=== PATIENT | female | born 1935 | race Caucasian/White ===

== ENCOUNTER 2020-04-13 12:41 | Inpatient (IN) ==
[~2020-04-13 12:41] MED LIST: Buffered Lidocaine 1% SYRIN 1 ml INTRADERM ONE; Dexamethasone IV 4 MG/ML VIAL 1 ml VIAL IV SLOW PU ONE; Lactated Ringers 1000 ml BAG 1,000 ML IV SCH
[2020-04-13] MEDS ORDERED: Dexamethasone IV 4 MG/ML VIAL 1 ml VIAL ONE (12:58)
[2020-04-13] MEDS ORDERED: ceFAZolin 2 GM PREMIX 2 GM/50 ML BAG ONE (12:59)
[2020-04-13] MEDS ORDERED: fentaNYL 100 mcg/2 ml 50 MCG/ML VIAL ONE ×2 (14:20→17:38)
[2020-04-13] MEDS ORDERED: Midazolam 2 mg/2 ml VIAL 1 mg/ml 2 ml VIAL (2 mg) ONE (14:20)
[2020-04-13] MEDS ORDERED: oxyCODONE/Acetamin 5/325 mg TAB PO PRN (16:05)
[2020-04-13] MEDS ORDERED: Ondansetron ODT 4 mg TAB 4 MG TAB PO PRN (16:05)
[2020-04-13] MEDS ORDERED: diPHENhydraMINE 25 mg TAB PO PRN (16:05)
[2020-04-13] MEDS ORDERED: Lactulose 30 ml UDC PO PRN (16:05)
[2020-04-13] MEDS ORDERED: Morphine 2 MG/ML SYRINGE IV PRN (16:05)
[2020-04-13] MEDS ORDERED: Magnesium Hydroxide LIQ 30 ML UDC PO PRN (16:05)
[2020-04-13] MEDS ORDERED: diPHENhydraMINE IV 50 MG/ML 1 ml VIAL (BENADRYL) IV PRN (16:05)
[2020-04-13] MEDS ORDERED: Phenylephrine 40 mcg/mL 10mL (400mcg) SYRINGE ONE (16:14)
[2020-04-13] MEDS ORDERED: ceFAZolin 1 GM ADVAN 1 GM in NS 0.9% 50 ML 50 ML IVPB SCH (17:00)
[2020-04-13] MEDS ORDERED: Propofol 10 MG/ML 20 ML BTL ONE ×2 (17:23)
[2020-04-13] MEDS ORDERED: Naloxone 0.4 mg VIAL 0.4 mg/ml 1 ml VIAL IV PRN (17:30)
[2020-04-13] MEDS ORDERED: HYDROmorphone 1 MG/1 ML SYRINGE IV PRN (17:30)
[2020-04-13] MEDS: fentaNYL 100 mcg/2 ml 50 MCG/ML VIAL IV PRN ×4 (17:40→18:15)
[2020-04-13] MEDS: Lactated Ringers 1000 ml BAG 1,000 ML IV SCH (19:22)
[2020-04-13] MEDS: Magnesium Hydroxide LIQ 30 ML UDC PO SCH ×2 (20:21→20:23)
[2020-04-13] MEDS: SULFADIAZINE 500 MG PO SCH (23:39)
[2020-04-13] MEDS: CMCS:Pravastatin 20 mg TAB (NF) PO SCH (23:39)
[2020-04-13] MEDS: ceFAZolin 1 GM ADVAN 1 GM in NS 0.9% 50 ML 50 ML IVPB SCH (23:41)
[2020-04-14] MEDS: Lactated Ringers 1000 ml BAG 1,000 ML IV SCH ×2 (04:38→21:48)
[2020-04-14] MEDS: ceFAZolin 1 GM ADVAN 1 GM in NS 0.9% 50 ML 50 ML IVPB SCH ×2 (06:07→14:47)
[2020-04-14] MEDS: Mirabegron 50 mg ER TAB (NF) PO SCH (07:25)
[2020-04-14] MEDS: SULFADIAZINE 500 MG PO SCH ×2 (07:25→21:17)
[2020-04-14 07:34] LABS: Hematocrit 23 % (35-47); Hemoglobin 7.7 g/dL (12.0-16.0); Mean Platelet Volume 8.4 fL (7.4-10.4); Platelet Count 147 10^3/uL (150-450)
[2020-04-14] MEDS: Aspirin EC 81 mg TAB.EC (enteric coated) PO SCH (07:37)
[2020-04-14] MEDS: Vitamin THERAPEUTIC TAB PO SCH (07:38)
[2020-04-14] MEDS: Magnesium Hydroxide LIQ 30 ML UDC PO SCH ×2 (07:42→21:18)
[2020-04-14 07:45] LABS: BUN/Creatinine Ratio 12.9 (8-20); Calcium 8.3 mg/dL (8.6-10.3); EGFR African American 53.9 (>60); EGFR Non-African American 44.5 (>60)
[2020-04-14] MEDS ORDERED: Spironolactone/HCTZ 25-25 mg PO SCH (08:00)
[2020-04-14] MEDS: Ondansetron 4 mg VIAL 2 MG/ML 2 ml VIAL IV PRN (08:39)
[2020-04-14 12:57] LABS: Hematocrit 23 % (35-47); Hemoglobin 8.1 g/dL (12.0-16.0)
[2020-04-14] MEDS ORDERED: NS 0.9% 500 ml BAG 500 ML IV ONE (18:40)
[2020-04-14] MEDS: CMCS:Pravastatin 20 mg TAB (NF) PO SCH (21:17)
[2020-04-14 21:48] LABS: ABS Lymphocytes 0.3 10^3/ul (1.0-4.8); ABS Monocytes 0.8 10^3/ul (0-0.8); ABS Neutrophils 5.6 10^3/ul (1.5-7.7); Eosinophil % 0.1 %; Hematocrit 21 % (35-47); Hemoglobin 7.4 g/dL (12.0-16.0); Lymphocyte % 4.1 %; Mean Corpuscular HGB Conc 35 g/dL (31-36); Mean Corpuscular Hemoglobin 37 pg (27-31); Mean Corpuscular Volume 106 fL (80-97); Mean Platelet Volume 7.8 fL (7.4-10.4); Platelet Count 142 10^3/uL (150-450); Red Blood Count 2.03 10^6 /uL (3.70-4.87); Red Cell Distribution Width 13 % (10-15); White Blood Count 6.7 10^3/uL (3.5-10.8)
[2020-04-14 22:00] LABS: BUN/Creatinine Ratio 16.5 (8-20); Calcium 8.8 mg/dL (8.6-10.3); EGFR African American 61.8 (>60); EGFR Non-African American 51.1 (>60); Potassium 3.7 mmol/L (3.5-5.0)
[2020-04-15 05:17] LABS: Hematocrit 21 % (35-47); Mean Platelet Volume 8.4 fL (7.4-10.4); Platelet Count 116 10^3/uL (150-450)
[2020-04-15] MEDS: Ondansetron 4 mg VIAL 2 MG/ML 2 ml VIAL IV PRN (06:22)
[2020-04-15] MEDS: Lactated Ringers 1000 ml BAG 1,000 ML IV SCH (07:55)
[2020-04-15] MEDS: Mirabegron 50 mg ER TAB (NF) PO SCH (07:57)
[2020-04-15] MEDS: Magnesium Hydroxide LIQ 30 ML UDC PO SCH ×2 (08:01→20:30)
[2020-04-15] MEDS: SULFADIAZINE 500 MG PO SCH ×2 (08:01→20:39)
[2020-04-15] MEDS: Vitamin THERAPEUTIC TAB PO SCH (08:02)
[2020-04-15] MEDS: Aspirin EC 81 mg TAB.EC (enteric coated) PO SCH (08:02)
[2020-04-15 08:36] LABS: Urine Appearance Cloudy; Urine Bilirubin Negative (Negative); Urine Blood Negative (Negative); Urine Color Amber; Urine Glucose Negative (Negative); Urine Ketones Negative (Negative); Urine Nitrite Negative (Negative); Urine Protein Negative (Negative); Urine Specific Gravity 1.018 (1.010-1.030); Urine Urobilinogen Negative (Negative)
[2020-04-15] MEDS ORDERED: Furosemide 20 mg/2 ml IV VIAL IV SLOW PU ONE (09:17)
[2020-04-15 16:46] LABS: Hematocrit 26 % (35-47); Hemoglobin 9.1 g/dL (12.0-16.0)
[2020-04-15] MEDS: CMCS:Pravastatin 20 mg TAB (NF) PO SCH (20:39)
[2020-04-16 05:20] LABS: Hematocrit 22 % (35-47); Hemoglobin 7.6 g/dL (12.0-16.0); Mean Platelet Volume 8.2 fL (7.4-10.4); Platelet Count 117 10^3/uL (150-450)
[2020-04-16] MEDS ORDERED: Furosemide 20 mg/2 ml IV VIAL IV SLOW PU ONE (07:15)
[2020-04-16] MEDS: Aspirin EC 81 mg TAB.EC (enteric coated) PO SCH (07:59)
[2020-04-16] MEDS: Vitamin THERAPEUTIC TAB PO SCH (07:59)
[2020-04-16] MEDS: SULFADIAZINE 500 MG PO SCH (08:02)
[2020-04-16] MEDS: Mirabegron 50 mg ER TAB (NF) PO SCH (08:07)
[2020-04-16 13:35] LABS: Hematocrit 25 % (35-47); Hemoglobin 8.4 g/dL (12.0-16.0)
[2020-04-16 13:52] LABS: BUN/Creatinine Ratio 15.7 (8-20); Calcium 8.8 mg/dL (8.6-10.3); EGFR African American 73.1 (>60); EGFR Non-African American 60.4 (>60); Potassium 3.5 mmol/L (3.5-5.0)
[2020-04-16 15:53] VITALS: BP 105/40
[2020-04-17] MEDS ORDERED: Spironolactone/HCTZ 25-25 mg PO SCH (09:00)
== END 2020-04-16 16:54 | disposition home health service (06) | DRG 470 ==
LOC: OR 12:41 → SSU 12:41 → EDSTATUS 15:15 → OBSVTOIN 18:36 → INTOOBSV 18:36 → SSU 04-14 18:13
PROVIDERS: ADMIT Orthopaedic Surgery Adult Reconstructive Orthopaedic Surgery; ATTEND Orthopaedic Surgery Adult Reconstructive Orthopaedic Surgery

== ENCOUNTER 2020-12-30 16:43 | Inpatient (IN) ==
[2020-12-30] MEDS ORDERED: Morphine 4 MG/ML VIAL (1 ml) IV ONE ×2 (17:39→22:23)
[2020-12-30] MEDS ORDERED: NS 0.9% 1000 ml BAG 1,000 ML IV ONE (17:39)
[2020-12-30] MEDS ORDERED: Ondansetron 4 mg VIAL 2 MG/ML 2 ml VIAL IV ONE ×2 (17:39→22:43)
[2020-12-30 18:21] LABS: ABS Basophils 0.1 10^3/ul (0-0.2); ABS Eosinophils 0.1 10^3/ul (0-0.6); ABS Lymphocytes 0.3 10^3/ul (1.0-4.8); ABS Monocytes 0.6 10^3/ul (0-0.8); Eosinophil % 2.1 %; Hematocrit 25 % (35-47); Hemoglobin 8.6 g/dL (12.0-16.0); Lymphocyte % 8.2 %; Mean Corpuscular HGB Conc 34 g/dL (31-36); Mean Corpuscular Hemoglobin 36 pg (27-31); Mean Corpuscular Volume 106 fL (80-97); Mean Platelet Volume 9.1 fL (7.4-10.4); Nucleated Red Blood Cells % 0.1; Platelet Count 191 10^3/uL (150-450); Red Cell Distribution Width 14 % (10-15)
[2020-12-30] MEDS ORDERED: HYDROmorphone 1 MG/1 ML SYRINGE IV SLOW PU ONE ×3 (18:23→22:33)
[2020-12-30 18:26] LABS: Albumin 3.9 g/dL (3.2-5.2); Albumin/Globulin Ratio 1.4 (1-3); C Reactive Protein 63.16 mg/L (<8.01); Calcium 9.2 mg/dL (8.6-10.3); EGFR African American 70.2 (>60); Globulin 2.8 g/dL (2-4); Total Bilirubin 4.7 mg/dL (0.2-1.0); Total Protein 6.7 g/dL (6.4-8.9)
[2020-12-30] MEDS ORDERED: Metoclopramide 5 MG/ML VIAL (10 mg) IV SLOW PU ONE (18:40)
[2020-12-30] MEDS ORDERED: Piperacillin/Tazobac ADVAN 3.375 GM in NS 0.9% 100 ml BAG 100 ML IV ONE (18:59)
[2020-12-30] MEDS ORDERED: Iodixanol (CONTRAST) 320 MG/ML 100 ML SDV IV ONE (19:15)
[2020-12-30 20:09] LABS: Potassium 3.6 mmol/L (3.5-5.0)
[2020-12-30 20:14] LABS: Urine Appearance Cloudy; Urine Bilirubin Negative (Negative); Urine Blood Negative (Negative); Urine Color Amber; Urine Glucose Negative (Negative); Urine Ketones Negative (Negative); Urine Nitrite Negative (Negative); Urine Protein 1+(30 mg/dL) (Negative); Urine Specific Gravity 1.021 (1.002-1.030); Urine Urobilinogen Negative (Negative)
[2020-12-30 20:22] LABS: Urine Bacteria Absent (Absent); Urine Red Blood Cell Absent (Absent); Urine Squamous Epithelial Cell Present (Absent); Urine White Blood Cell Trace(0-5/hpf) (Absent)
[2020-12-30] MEDS ORDERED: Ondansetron 4 mg VIAL 2 MG/ML 2 ml VIAL IV PRN (22:54)
[2020-12-30] MEDS ORDERED: HYDROmorphone 0.5 MG/0.5 ML SYRINGE IV SLOW PU PRN (22:59)
[2020-12-30] MEDS ORDERED: Zosyn per Pharmacy NOTE FOLLOW UP SCH (23:00)
[2020-12-30 23:35] LABS: Magnesium 1.8 mg/dL (1.9-2.7)
[2020-12-30] MEDS ORDERED: KCL 20 MEQ/100 ML IVPREMIX 20 MEQ/100 ML BAG IV SCH (23:45)
[2020-12-30] MEDS ORDERED: Metoprolol Tartrate 5 mg VIAL 5 ml VIAL (1 mg/ml) IV PRN (23:47)
[2020-12-30] MEDS ORDERED: Magnesium Sulfate 2 gm BAG 2 GM/50 ML BAG IVPB ONE (23:50)
[2020-12-31 02:15] LABS: Hematocrit 21 % (35-47); Hemoglobin 7.2 g/dL (12.0-16.0)
[2020-12-31] MEDS: KCL 20 MEQ/100 ML IVPREMIX 20 MEQ/100 ML BAG IV SCH ×2 (04:31→09:00)
[2020-12-31] MEDS: Lactated Ringers 1000 ml BAG 1,000 ML IV SCH ×2 (04:31→17:03)
[2020-12-31] MEDS ORDERED: Mirabegron 50 mg ER TAB (NF) PO SCH (08:00)
[2020-12-31 08:42] LABS: ABS Eosinophils 0.1 10^3/ul (0-0.6); ABS Lymphocytes 0.3 10^3/ul (1.0-4.8); ABS Monocytes 0.5 10^3/ul (0-0.8); ABS Neutrophils 3.1 10^3/ul (1.5-7.7); Eosinophil % 1.3 %; Hematocrit 27 % (35-47); Hemoglobin 9.2 g/dL (12.0-16.0); Lymphocyte % 7.6 %; Mean Corpuscular HGB Conc 34 g/dL (31-36); Mean Corpuscular Hemoglobin 35 pg (27-31); Mean Corpuscular Volume 103 fL (80-97); Mean Platelet Volume 9.1 fL (7.4-10.4); Nucleated Red Blood Cells % 0.1; Platelet Count 174 10^3/uL (150-450); Red Blood Count 2.67 10^6 /uL (3.70-4.87); Red Cell Distribution Width 17 % (10-15)
[2020-12-31 08:50] LABS: INR 1.08 (0.82-1.09)
[2020-12-31] MEDS: ZOSYN 3.375 GM Q8H per EXTENDED INFUSION IV SCH ×3 (08:50→18:32)
[2020-12-31] MEDS: Pantoprazole VIAL 40 MG VIAL IV SCH (08:50)
[2020-12-31 08:59] LABS: Albumin 3.6 g/dL (3.2-5.2); Albumin/Globulin Ratio 1.4 (1-3); C Reactive Protein 53.47 mg/L (<8.01); Calcium 8.9 mg/dL (8.6-10.3); EGFR African American 72.9 (>60); EGFR Non-African American 60.3 (>60); Globulin 2.5 g/dL (2-4); Indirect Bilirubin 2.2 mg/dL (0.3-1.0); Potassium 3.5 mmol/L (3.5-5.0); Total Bilirubin 4.2 mg/dL (0.2-1.0); Total Protein 6.1 g/dL (6.4-8.9)
[2020-12-31] MEDS ORDERED: ASPIRIN 81 MG PO SCH (09:00)
[2020-12-31 10:46] LABS: TSH Ultra Thyroid Stim Horm 10.19 mcIU/mL (0.34-5.60)
[2021-01-01] MEDS: ZOSYN 3.375 GM Q8H per EXTENDED INFUSION IV SCH (02:14)
[2021-01-01] MEDS: Lactated Ringers 1000 ml BAG 1,000 ML IV SCH (04:16)
[2021-01-01 05:55] LABS: ABS Eosinophils 0.1 10^3/ul (0-0.6); ABS Lymphocytes 0.4 10^3/ul (1.0-4.8); ABS Monocytes 0.6 10^3/ul (0-0.8); ABS Neutrophils 2.4 10^3/ul (1.5-7.7); Eosinophil % 3.5 %; Hematocrit 25 % (35-47); Hemoglobin 8.4 g/dL (12.0-16.0); Lymphocyte % 11.6 %; Mean Corpuscular HGB Conc 34 g/dL (31-36); Mean Corpuscular Hemoglobin 35 pg (27-31); Mean Corpuscular Volume 103 fL (80-97); Mean Platelet Volume 8.6 fL (7.4-10.4); Nucleated Red Blood Cells % 0.2; Platelet Count 179 10^3/uL (150-450); Red Blood Count 2.41 10^6 /uL (3.70-4.87); Red Cell Distribution Width 17 % (10-15); White Blood Count 3.6 10^3/uL (3.5-10.8)
[2021-01-01 06:06] LABS: Calcium 8.6 mg/dL (8.6-10.3); EGFR African American 67.6 (>60); EGFR Non-African American 55.9 (>60); Magnesium 1.8 mg/dL (1.9-2.7); Potassium 3.7 mmol/L (3.5-5.0)
[2021-01-01 06:33] LABS: Carcinoembryonic Antigen 2.2 ng/mL (0.1-5.0)
[2021-01-01] MEDS: Pantoprazole VIAL 40 MG VIAL IV SCH (08:50)
[2021-01-01] MEDS ORDERED: Amoxicillin/Clavul 500/125 TAB (Augmentin 500 mg tab) PO SCH (21:00)
[2021-01-01] MEDS ORDERED: Pravastatin 20 mg TAB (NF) PO SCH (22:00)
[2021-01-02 08:52] LABS: ABS Basophils 0.1 10^3/ul (0-0.2); ABS Eosinophils 0.2 10^3/ul (0-0.6); ABS Lymphocytes 0.4 10^3/ul (1.0-4.8); ABS Monocytes 0.5 10^3/ul (0-0.8); Eosinophil % 4.1 %; Hematocrit 27 % (35-47); Hemoglobin 8.9 g/dL (12.0-16.0); Lymphocyte % 9.8 %; Mean Corpuscular HGB Conc 33 g/dL (31-36); Mean Corpuscular Hemoglobin 35 pg (27-31); Mean Corpuscular Volume 103 fL (80-97); Mean Platelet Volume 8.4 fL (7.4-10.4); Nucleated Red Blood Cells % 0.1; Platelet Count 211 10^3/uL (150-450); Red Blood Count 2.57 10^6 /uL (3.70-4.87); Red Cell Distribution Width 17 % (10-15); White Blood Count 4.1 10^3/uL (3.5-10.8)
[2021-01-02] MEDS ORDERED: Aspirin EC 81 mg TAB.EC (enteric coated) PO SCH (09:00)
[2021-01-02 09:13] LABS: Albumin 3.3 g/dL (3.2-5.2); Albumin/Globulin Ratio 1.4 (1-3); Calcium 8.6 mg/dL (8.6-10.3); EGFR African American 68.5 (>60); EGFR Non-African American 56.6 (>60); Globulin 2.3 g/dL (2-4); Magnesium 1.6 mg/dL (1.9-2.7); Potassium 3.4 mmol/L (3.5-5.0); Total Bilirubin 3.4 mg/dL (0.2-1.0); Total Protein 5.6 g/dL (6.4-8.9)
[2021-01-02] MEDS ORDERED: Potassium Chlor 20 meq TAB.ER PO ONE (09:19)
[2021-01-02] MEDS ORDERED: Magnesium Sulfate IV 3 GM in NS 0.9% 100 ml BAG 100 ML IVPB ONE (10:00)
[2021-01-02 11:34] VITALS: BP 134/76
== END 2021-01-02 14:25 | disposition home or self-care (01) | DRG 393 ==
LOC: ED 16:43 → MEDTELE 22:51
PROVIDERS: ADMIT Internal Medicine; ATTEND Internal Medicine